=== PATIENT | female | born 1960 | race Caucasian/White ===

== ENCOUNTER 2019-10-09 17:31 | Outpatient (CLI) | payer OTHER ==
[2019-10-09 19:30] LABS: THYROID STIMULATING HORMONE 2.17 uIU/mL (0.34-5.60)
[2019-10-09 19:32] LABS: FREE T4 (FREE THYROXINE) 0.69 ng/dL (0.58-1.64)
== END 2019-10-09 17:32 | disposition home or self-care (01) ==
LOC: LAB 17:31
PROVIDERS: ATTEND Physician Assistant Medical
DX: Z86.39 Personal history of other endocrine, nutritional and metabolic disease (principal); R63.5 Abnormal weight gain; R68.89 Other general symptoms and signs
CPT/HCPCS: 36415; 84439; 84443; 84481